=== PATIENT | male | born 1945 | race Hispanic/Latino ===

== ENCOUNTER 2019-03-15 09:52 | Day surgery (SDC) | payer MEDICARE, MEDICAID ==
[2019-03-14 14:01] VITALS: BMI 26.2
[~2019-03-15 09:52] MED LIST: EPINEPHrine 0.3 MG, Dextrose 50% 3 ML in Ophthalmic Irrigation Solution 500 ML IVP SCH
[2019-03-15] MEDS ORDERED: Cyclopentolate 1% Opth Drop 2 ML BOT ONE (10:43)
[2019-03-15] MEDS ORDERED: Phenylephrine 2.5% Ophth Soln 5 ML BOT ONE (10:43)
[2019-03-15] MEDS ORDERED: Triamcinolone 40 MG/ML VIAL ONE (12:12)
[2019-03-15] MEDS ORDERED: Bupivacaine PF 0.75% SDV 10 ML ONE (12:12)
[2019-03-15] MEDS ORDERED: Lidocaine 4% PF 5 ML AMP ONE (12:12)
[2019-03-15] MEDS ORDERED: Labetalol HCl 100 MG/20 ML VIAL ONE (12:12)
[2019-03-15] MEDS ORDERED: PROPOFOL 200 MG/20 ML VIAL ONE (12:12)
[2019-03-15] MEDS ORDERED: Lidocaine 1% PF 5 ML VIAL ONE (12:12)
[2019-03-15] MEDS ORDERED: Maxitrol 0.1% Opth Oint 3.5 GM TUBE ONE (12:12)
[2019-03-15] MEDS ORDERED: CEFAZOLIN 1 GM VIAL ONE (12:12)
--- NOTE | 2019-03-15 19:54 | OP ---
DATE OF PROCEDURE: 03/15/2019 PREOPERATIVE DIAGNOSIS: Vitreous hemorrhage, retinal traction, post-diabetic retinopathy, right eye. POSTOPERATIVE DIAGNOSIS: Vitreous hemorrhage, retinal traction, post-diabetic retinopathy, right eye. PROCEDURE: Pars plana vitrectomy, membrane peel, panretinal photocoagulation, right eye. ANESTHESIA: Local monitored anesthesia care. PROCEDURE: Patient was identified in the preoperative holding area. Appropriate informed consent for planned surgical procedure on the right eye had been obtained. Patient was transported to the operative suite. Appropriate cardiopulmonary established. Local anesthesia obtained using retrobulbar modified Van Lint lid block using 50:50 mixture of 4% lidocaine and 0.75% bupivacaine. Patient was prepped and draped in usual sterile manner for ophthalmic surgery on the right eye. Lid speculum was placed in the right eye. A 25-gauge trocar system was placed through conjunctiva and sclera supratemporally, inferotemporally, and supranasally. Infusion line was placed inferotemporally. Light pipe and vitreous cutter were inserted to the eye. Core vitrectomy was performed. Traction was removed from the retinal surface by direct dissection with membrane and forceps and the membrane and vitreous cutter. Panretinal photocoagulation was placed into all areas of bleeding and nontreated areas of the retina. No holes, breaks, or tears were identified. Trocars were removed. Eye was noted to retain pressure well. Retrobulbar Kenalog and subconjunctival Ancef were placed. Antibiotic ointment was placed. Eye was patched and shielded. The patient was taken to postoperative recovery unit in good condition, having suffered no immediate perioperative complications. Patient was instructed to keep patch and shield on, avoid lifting or bending, and followup appointment with Dr. Parra. Job ID: [id number]
== END 2019-03-15 13:25 | disposition home or self-care (01) ==
LOC: SDC 09:52
PROVIDERS: ATTEND Ophthalmology Retina Specialist
PROC: 08T43ZZ Resection of Right Vitreous, Percutaneous Approach (ICD-10-PCS; principal; 2019-03-15)
PROC: 08NE3ZZ Release Right Retina, Percutaneous Approach (ICD-10-PCS; 2019-03-15)
PROC: 08QE3ZZ Repair Right Retina, Percutaneous Approach (ICD-10-PCS; 2019-03-15)
DX: H43.11 Vitreous hemorrhage, right eye (principal); H43.821 Vitreomacular adhesion, right eye; E11.319 Type 2 diabetes mellitus with unspecified diabetic retinopathy without macular edema; I10 Essential (primary) hypertension; E78.5 Hyperlipidemia, unspecified; N40.0 Benign prostatic hyperplasia without lower urinary tract symptoms; Z79.01 Long term (current) use of anticoagulants; Z79.82 Long term (current) use of aspirin; Z79.84 Long term (current) use of oral hypoglycemic drugs; Z79.899 Other long term (current) drug therapy; Z95.1 Presence of aortocoronary bypass graft
CPT/HCPCS: J0171; J0690; J2001; J2704; J3301; J3490

== ENCOUNTER 2019-08-21 06:05 | Observation (INO) | payer MEDICARE, MEDICAID ==
[2019-08-20 15:54] VITALS: BMI 27.6
--- NOTE | 2019-08-21 06:33 | HP ---
HISTORY: Diamond Acevedo is a 73-year-old male, who is Monegasque-speaking only. He first presented in July 2007 with chest discomfort that awakened him at 2 a.m. On EKG, he was found to have an inferoposterior STEMI. He underwent emergent cardiac catheterization and was found to have an 80% proximal LAD, total occlusion of the mid circumflex and very small right coronary artery. He underwent emergent stent placement in the mid circumflex with a Liberte 3.5 x 28 mm stent. He was also found to have significant disease distal to this in the second obtuse marginal with a 90% lesion and then the inferior branch of the second obtuse marginal had a 90 followed by 80% lesion. Ejection fraction on echo was approximately 30%. He was kept in the hospital for 1 week and then he underwent CABG x4 by Dr. Obregon. There was DOWLING to the LAD and saphenous vein graft to the diagonal, first obtuse marginal, and second obtuse marginal. The diagonal graft was anastomosed to the angelo of the second obtuse marginal graft. Postoperative course was fairly unremarkable. He did develop cough with lisinopril which was discontinued. It is of note that with his myocardial infarction, the CK went to 11,935 with a troponin I of 942. Postoperative ejection fraction approximately 3 months after bypass was 45% to 50%. He also had mild aortic stenosis and has being continued to be followed for that. Also in March 2011, he was found to be in atrial fibrillation and he was placed on Pradaxa 150 b.i.d. In April 2011, he was placed on amiodarone 200 mg b.i.d. Then on June 17, 2011, during the cardioversion, he did have a 5-second pause at conversion and his carvedilol dose was reduced and he was observed overnight and did not have any significant bradycardia. In August 2011, when he was seen for followup, his energy level did not seem to improve after cardioversion. He did develop gross hematuria. In November 2011, he was found to be in atrial flutter and he was referred to management information systems director. He was seen back for followup in March 2012, and he remained in atrial flutter and had not seen the management information systems director. In April of 2012, he underwent atrial fibrillation and flutter ablation in [place] at [facility]. In September 2012, he was seen after the ablation. He was walking up to 45 minutes without symptoms. He then increased his walking to 1 hour per day. His aortic stenosis has continued to worsen over time; however, he has been completely asymptomatic. That is until he returned for followup on August 13, 2019. He began to notice leg edema two weeks prior to that and had been placed on furosemide 20 mg daily, and his leg edema had improved. He denied any PND, dyspnea on exertion, or chest discomfort. He has been having increasing fatigue and his family states that he has been walking much slower. Echocardiogram was performed which revealed ejection fraction of 50% to 55% with mildly dilated left atrium, moderate aortic regurgitation, severe aortic stenosis with peak gradient of 60 mm, mean gradient of 36 mm, aortic valve area of 0.7 sq cm, moderate mitral regurgitation and mild tricuspid regurgitation. With beginning of heart failure symptoms with his peripheral edema, it was recommended he undergo cardiac catheterization and appropriate therapy including possible TAVR. Risks of catheterization were discussed including , myocardial infarction, dye reaction, vascular injury, CVA, transfusion, limb loss, renal loss, etc. Also, risk of intervention if a stent was required was discussed including , myocardial infarction, emergent CABG, restenosis, stent thrombosis, vessel perforation, etc. He understands and is agreeable to proceed. PAST MEDICAL HISTORY: Atrial fibrillation and atrial flutter, aortic stenosis, coronary artery disease, myocardial infarction, hypercholesterolemia, under good control, hypertension, diabetes, TIA at [facility] 2019 and Eliquis started. MEDICATIONS: 1. Amitriptyline 25 mg at bedtime. 2. Aspirin 81 daily. 3. Eliquis 5 mg b.i.d. 4. Finasteride 5 mg daily. 5. Glimepiride 1 mg daily. 6. Atorvastatin 80 daily. 7. Metformin 500 mg daily. 8. Losartan 100 mg daily. 9. Carvedilol 3.125 b.i.d. 10. Furosemide 20 daily. ALLERGIES: COUGH WITH KAVON INHIBITORS. OPERATIONS: Coronary artery stent placement with acute inferoposterior myocardial infarction, CABG in June 2007, and radiofrequency ablation of atrial fibrillation/flutter in April 2012. SOCIAL HISTORY: He does not smoke or drink. FAMILY HISTORY: Brother has had myocardial infarction. REVIEW OF SYSTEMS: A 12-point review of systems is otherwise unremarkable. PHYSICAL EXAMINATION: VITAL SIGNS: Blood pressure 135/75, pulse is 73, sinus rhythm. HEENT: PERRL. NECK: Supple. CHEST: Clear. CARDIAC: S1 and S2 normal without any S3 and S4. There is a 2/6 systolic ejection murmur. ABDOMEN: Normal bowel sounds without tenderness. EXTREMITIES: Revealed trace pretibial edema. NEUROLOGIC: Grossly intact. SKIN: Warm and dry. LABORATORY DATA: Pending. IMPRESSION: 1. Severe aortic stenosis, now with leg edema and increasing fatigue, improved with furosemide 20 mg. 2. History of atrial fibrillation, status post cardioversion and then developed atrial flutter. He underwent ablation of this in [place]. 3. Inferoposterior myocardial infarction with stent placement in the mid circumflex, followed by CABG one week later in June 2007. 4. Hypercholesterolemia under good control. 5. Hypertension. 6. Positive family history. 7. Transient ischemic attack, at [facility] with MRA of the neck and was found to have no carotid stenosis and was placed on Eliquis 5 mg b.i.d. due to history of atrial fibrillation in the past. He also had undergone a month long monitoring after that hospitalization at [facility] and was not seen to have any atrial fibrillation. Eliquis has been discontinued prior to this catheterization. PLAN: The patient to undergo cardiac catheterization. The procedure, the risks and benefits were discussed and he agrees to proceed. Job ID: [id number] [facility]
[2019-08-21] MEDS ORDERED: Heparin 10,000 UNITS/1 ML VIAL ONE (07:12)
[2019-08-21] MEDS ORDERED: Fentanyl 100 MCG/2 ML VIAL ONE (07:12)
[2019-08-21] MEDS ORDERED: Midazolam HCl 2 mg/2 ml Vial ONE (07:13)
[2019-08-21] MEDS ORDERED: Protamine Sulfate 50 MG/5 ML VIAL ONE (08:16)
[2019-08-21] MEDS ORDERED: Iopamidol 370 76% 50 ML VIAL FS ONE (09:18)
[2019-08-21] MEDS ORDERED: Iopamidol 370 76% 100 ML VIAL ONE (09:18)
[2019-08-21] MEDS ORDERED: Sodium Chloride 0.9% 1,000 ML IV SCH (12:17)
[2019-08-21] MEDS ORDERED: Acetaminophen/Codeine 30-300mg Tablet PO PRN ×2 (12:17)
[2019-08-21] MEDS ORDERED: traMADol HCl 50 MG TAB PO PRN (12:17)
[2019-08-21] MEDS ORDERED: Nitroglycerin 0.4 MG TAB (25 Tab Bottle) SL PRN (12:17)
[2019-08-21] MEDS ORDERED: Prevnar 13-Val Conj/PF 0.5 ML SYRINGE IM ONE (12:45)
--- NOTE | 2019-08-21 12:53 | RAD ---
PORTABLE CHEST 1 VIEW: DATE: 08/21/2019. TIME: 5:58 AM. HISTORY: 3LHC. Coronary artery disease. COMPARISON: 03/31/2012. FINDINGS: Changes of median sternotomy are again seen. The heart size is borderline. There is scarring at the left costophrenic angle. No focal areas of consolidation, pneumothoraces, or pleural effusions are seen. IMPRESSION: No acute process. POS: JULIO
--- NOTE | 2019-08-21 20:19 | EKG ---
Test Reason : PREOP Blood Pressure : / mmHG Vent. Rate : 071 BPM Atrial Rate : 227 BPM P-R Int : 000 ms QRS Dur : 126 ms QT Int : 414 ms P-R-T Axes : 115 013 151 degrees QTc Int : 449 ms Atrial flutter with variable A-V block Left ventricular hypertrophy with QRS widening Possible Inferior infarct , age undetermined T wave abnormality, consider lateral ischemia Abnormal ECG Confirmed by LORA HERBERT, DR. Ritter ([id number]) on 08/21/2019 8:18:40 PM Referred By: BENNETT Confirmed By:DR. Stone PAULINO MD
[2019-08-22 08:11] VITALS: BP 157/83; TEMP 98.7
--- NOTE | 2019-08-22 13:34 | DIS ---
DATE OF ADMISSION: 08/21/2019 DATE OF DISCHARGE: 08/22/2019 DISCHARGE DIAGNOSES: 1. Severe aortic stenosis with valve area of 0.42 cm2. 2. Three of four bypass grafts patent. 3. Ejection fraction of 30% to 35%, falling from 45% to 50% one week ago. 4. Paroxysmal atypical atrial flutter. 5. Transient ischemic attack in 2017, with Eliquis started although no arrhythmias were demonstrated at that time. 6. History of inferoposterior ST segment elevation myocardial infarction, with placement of stent in mid circumflex, followed by coronary artery bypass grafting in June 2007. 7. History of atrial fibrillation status post electrical cardioversion, then developed atrial flutter, underwent ablation of those arrhythmias in [place]. 8. Hypercholesterolemia. 9. Hypertension. 10. Positive family history. PLAN: The patient will continue his current medications and will resume Eliquis on August 24. He will see Dr. Smyth for arrangement of TAVR. HOSPITAL COURSE: Mr. Acevedo underwent cardiac catheterization after developing increasing edema as well as exertional fatigue. This revealed mild global hypokinesis and severe inferior hypokinesis with ejection fraction of 30% to 35%. His ejection fraction on echo of previous week was approximately 45%. The mean LV-aortic gradient was 37 mm with aortic valve area of 0.42 cm2. Coronary arteries revealed a 70% proximal LAD, 80% mid LAD, and 70% first diagonal. The circumflex continued to have good stent results and an 80% lesion in the obtuse marginal. The right coronary artery was small with a 70% proximal stenosis. Bypass grafts revealed patent DOWLING to the LAD. The graft to the first obtuse marginal was patent. The graft to the second obtuse marginal was patent. The diagonal graft that was piggybacked onto the second obtuse marginal graft was occluded. Mr. Acevedo was observed overnight due to the fall in his ejection fraction and remained stable. He did have episodes of paroxysmal atypical atrial flutter and his Eliquis will be resumed. This will continue to be followed as an outpatient once he has undergone TAVR. Job ID: [id number]
== END 2019-08-22 11:56 | disposition home or self-care (01) ==
LOC: CCL 06:05 → 2SE 09:00
PROVIDERS: ADMIT Internal Medicine Cardiovascular Disease; ATTEND Internal Medicine Cardiovascular Disease
PROC: 4A023N8 Measurement of Cardiac Sampling and Pressure, Bilateral, Percutaneous Approach (ICD-10-PCS; principal; 2019-08-21)
PROC: B2111ZZ Fluoroscopy of Multiple Coronary Arteries using Low Osmolar Contrast (ICD-10-PCS; 2019-08-21)
DX: I35.0 Nonrheumatic aortic (valve) stenosis (principal); I25.10 Atherosclerotic heart disease of native coronary artery without angina pectoris; I48.4 Atypical atrial flutter; I48.91 Unspecified atrial fibrillation; E78.00 Pure hypercholesterolemia, unspecified; I10 Essential (primary) hypertension; I21.11 ST elevation (STEMI) myocardial infarction involving right coronary artery; G45.9 Transient cerebral ischemic attack, unspecified; Z79.01 Long term (current) use of anticoagulants; Z79.82 Long term (current) use of aspirin; Z79.84 Long term (current) use of oral hypoglycemic drugs; Z79.899 Other long term (current) drug therapy; Z88.8 Allergy status to other drugs, medicaments and biological substances; Z95.1 Presence of aortocoronary bypass graft; Z95.5 Presence of coronary angioplasty implant and graft
CPT/HCPCS: 71045; 82962; 85347; 93005; 93460; C1769; 36416; 93010; 99152; 99153; G0378; J1644; J2250; J2720; J3010; Q9967

== ENCOUNTER 2022-07-23 22:04 | Emergency (ER) | payer MEDICARE, OTHER ==
[2022-07-23] MEDS ORDERED: EPINEPHrine 1 MG/10 ML Abboject SYRINGE ONE (22:07)
[2022-07-23] MEDS ORDERED: Calcium Chloride 1 GM/10 ML Abboject SYRINGE ONE (22:07)
== END 2022-07-23 22:14 | disposition expired ==
LOC: ERS 22:04
DX: I46.9 Cardiac arrest, cause unspecified (principal); I63.9 Cerebral infarction, unspecified; G20 Parkinson's disease; R13.12 Dysphagia, oropharyngeal phase; E11.8 Type 2 diabetes mellitus with unspecified complications; M62.81 Muscle weakness (generalized)
CPT/HCPCS: 36415; 80053; 80061; 83036; 84134; 84443; 85025; 92950; J0171